=== PATIENT | male | born 1990 | race Caucasian/White ===

== ENCOUNTER 2020-05-24 01:56 | Emergency (ER) | payer SELFPAY ==
--- NOTE | ~2020-05-24 | CT_ITS ---
EXAMINATION: CT brain wo con, CT facial & cervical spine wo DATE: 05/24/2020 02:22 INDICATION: Head injury with altered mental status and midline neck tenderness TECHNIQUE: 1. Computed tomography (CT) of the head was performed without intravenous contrast. Sagittal and hi nal reconstructions were performed. The dose-length product was 605.33 mGy-cm. 2. CT of the maxillofacial bones was performed without intravenous contrast. Sagittal and coronal rec onstructions were performed. Automated exposure control and iterative reconstruction technique were e mployed. The dose-length product was 431.12 mGy-cm. COMPARISON: None FINDINGS: Head maxillofacial bones: No calvarial fracture. No acute intracranial hemorrhage, acute infarction or abnormal extra axial flu id collection. Ventricles are normal and symmetric. No mass/mass effect. The orbits are normal. No ma xillofacial fractures. Small mucous retention cyst in the left maxillary sinus. Mastoid air cells and middle ear cavities are clear. Cervical spine: Straightening of the normal cervical lordosis which is likely positional in the presence of a cervica l collar. No spondylolisthesis or facet subluxation. Vertebral body heights are normal. No fractures. Disc spaces are relatively preserved. No significant facet or uncovertebral osteoarthritis. Central canal and neural foramina are patent throughout. Cervical soft tissues are unremarkable. Utilized air way is clear. Groundglass opacity and bronchovascular crowding at the apices of lungs consistent with expiratory phase of imaging. IMPRESSION: 1. No acute intracranial process. 2. Likely positional straightening of the normal cervical lordosis. Otherwise no osseous abnormality at the head or neck. Reviewed, dictated and finalized at location A. IMPRESSION: 1. No acute intracranial process. 2. Likely positional straightening of the normal cervical lordosis. Otherwise n o osseous abnormality at the head or neck.
[2020-05-24 01:54] VITALS: BP 147/106; PULSE 94; RESP 18; TEMP 36.8; O2SAT 98
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
[2020-05-24 03:29] VITALS: BP 131/95; PULSE 88; RESP 16; TEMP 36.7; O2SAT 100
== END 2020-05-24 03:29 | disposition home or self-care (01) ==
PROVIDERS: Emergency Provider Emergency Medicine
DX: S00.12XA Contusion of left eyelid and periocular area, initial encounter (principal); Y04.0XXA Assault by unarmed brawl or fight, initial encounter
CPT/HCPCS: 70450; 70486; 72125; 99284

== ENCOUNTER 2022-08-02 14:20 | Emergency (ER) | payer OTHER, SELFPAY ==
--- NOTE | ~2022-08-02 | XR_ITS ---
EXAMINATION: XR knee RT min 4V DATE: 08/02/2022 18:49 INDICATION: Right knee pain TECHNIQUE: Four views of the right knee were obtained. COMPARISON: None. FINDINGS: Alignment is normal. No fracture or osteochondral lesion. Joint spaces are normal with no e rosions. No joint effusion/synovitis. Soft tissues are unremarkable. IMPRESSION: 1. No acute osseous abnormality. Reviewed, dictated and finalized at location F.
--- NOTE | ~2022-08-02 | XR_ITS ---
EXAMINATION:[id number] DATE: 08/02/2022 18:50 INDICATION: Neck pain TECHNIQUE: AP, lateral, and odontoid views of the cervical spine are provided. COMPARISON: None FINDINGS: There is 1 mm of anterolisthesis of C4 on C5. The odontoid is intact. No fracture is identi fied. Vertebral body heights and disk spaces are normal. Prevertebral soft tissues are normal. IMPRESSION: 1. Mild cervical spondylosis without acute findings. If there is high clinical suspicion for cervical spine fracture, CT is recommended. Reviewed, dictated and finalized at location F.
--- NOTE | ~2022-08-02 | XR_ITS ---
EXAMINATION: XR shoulder RT min 2V INDICATION: Right shoulder pain TECHNIQUE: Four views of the right shoulder are submitted. COMPARISON: None FINDINGS: Normal alignment. No fracture. Glenohumeral and acromioclavicular joint spaces are normal. Soft tissues are unremarkable. IMPRESSION: 1. No acute osseous abnormality. Reviewed, dictated and finalized at location F.
[2022-08-02 14:36] VITALS: BP 153/92; PULSE 100; RESP 20; TEMP 37; O2SAT 100
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
[2022-08-02] MEDS: KETOROLAC (*BKC) 60 MG/2 ML VIAL IM (19:42)
== END 2022-08-02 19:55 | disposition home or self-care (01) ==
PROVIDERS: Emergency Provider Emergency Medicine; PCP Registered Nurse
DX: S46.911A Strain of unspecified muscle, fascia and tendon at shoulder and upper arm level, right arm, initial encounter (principal); S86.911A Strain of unspecified muscle(s) and tendon(s) at lower leg level, right leg, initial encounter; E78.5 Hyperlipidemia, unspecified; I10 Essential (primary) hypertension; M47.812 Spondylosis without myelopathy or radiculopathy, cervical region; V49.50XA Passenger injured in collision with unspecified motor vehicles in traffic accident, initial encounter
CPT/HCPCS: 72040; 73030; 73564; 96372; 99284; J1885

== ENCOUNTER 2022-09-11 15:40 | Outpatient (CLI) | payer OTHER, SELFPAY ==
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
== END 2022-09-11 15:41 | disposition home or self-care (01) ==
PROVIDERS: PCP Registered Nurse; Visit Provider Registered Nurse
DX: S43.431A Superior glenoid labrum lesion of right shoulder, initial encounter (principal); V89.2XXA Person injured in unspecified motor-vehicle accident, traffic, initial encounter
CPT/HCPCS: 73221